=== PATIENT | male | born 1960 | race Caucasian/White ===

== ENCOUNTER 2017-03-20 14:39 | Emergency (ER) | payer OTHER ==
--- NOTE | 2017-03-20 16:22 | EDPHY ---
H & P Stated Complaint: Fell;hit head, +LOC;neck, head, L wrist pain HPI/ROS: CHIEF COMPLAINT: Head injury at work HISTORY OF PRESENT ILLNESS: This patient is a 56 year old male complaining of head and neck pain secondary to a fall at work this afternoon. He was moving a frame with other workers and it fell, so he attempted to break its fall. He fell back against another frame, striking his head, and states he neck "snapped forward", and he fell to the ground, striking his head on concrete. He did lose consciousness, and states he doesn't remember anything until EMS crews arrived. He states he could not feel his legs initially, but this has since resolved. He does not currently have paresthesias. He has not had any extremity weakness. He endorses global headache and neck soreness. His left wrist hurts as well. No nausea, vomiting, change in vision, confusion, or other associated symptoms. REVIEW OF SYSTEMS: A ten point review of systems was performed and is negative with the exception of the items mentioned in the HPI. - Personal History Current Tetanus Diphtheria and Acellular Pertussis (TDAP): Yes - Medical/Surgical History PMH: Denies Other PMH: healthy - Social History Smoking Status: Never smoked Additional Social History: Recently moved from [place]. No drug use, alcohol use, or prescription medications. at bedside. - Physical Exam Exam: General Appearance: Alert. Vital signs reviewed. Head: Normocephalic atraumatic. Eyes: Pupils equal and round, no conjunctival injection, no discharge. Anicteric. ENT, Mouth: Mucous membranes are moist, no oropharyngeal erythema or edema. No dental injury or trismus. Neck: Tender to palpation over the upper cervical spine/occiput in the midline , no step-off or deformity. There is also paraspinous muscle tenderness bilaterally. Respiratory: Lungs are clear to auscultation; no wheezes, rales, or rhonchi. Cardiovascular: Regular rate and rhythm; no murmur, rub, or gallop. Gastrointestinal: Abdomen is soft and nontender, no masses or organomegaly, bowel sounds normal. Skin: Warm and dry, no rashes on exposed skin, normal color. Back: Nontender to palpation over the thoracolumbar spine. No CVAT. Extremities: No lower extremity edema, no calf tenderness or swelling. Neurological: Alert and oriented. Moving all four extremities easily and equally. Cranial nerves II through XII are examined and are intact (visual acuity not tested). Strength is 5 over 5 bilaterally with testing of all major motor groups. Sensation is intact to light touch over all 4 extremities. Deep tendon reflexes are 2+ in the biceps and knees bilaterally. Gait is normal. Psychiatric: Normal affect. Constitutional: Initial Vital Signs Temperature (C) 36.8 C 03/20/17 14:40 Heart Rate 73 03/20/17 14:40 Respiratory Rate 16 03/20/17 14:40 Blood Pressure 122/75 H 03/20/17 14:40 O2 Sat (%) 91 L 03/20/17 14:40 O2 Delivery Mode Room Air Allergies/Adverse Reactions: No Known Allergies Allergy (Unverified 03/20/17 14:48) Home Medications: Medication Instructions Recorded NK [No Known Home Meds] 03/20/17 Medical Decision Making - Diagnostics Imaging Results: Noncontrast head CT reviewed by me in PACs. I discussed the findings with Dr. Rose. There are no acute traumatic findings. Cervical spine CT discussed with Dr. Rose. Multilevel degenerative disease. No acute traumatic findings. There is an incidental finding of a possible parathyroid adenoma. Left hand and wrist x-ray reviewed by me. Aside from osteoarthritis no abnormalities noted, specifically no fracture or dislocation. Imaging: Discussed imaging studies w/ marketing developer Radiologist, I viewed and interpreted images myself ED Course/Re-evaluation: This patient is a 56 year old male presenting following a fall and associated loss of consciousness of unknown duration. CT scan of the head performed for the following indications-loss of consciousness and headache following fall. Wrist x-ray and hand reviewed. No evidence of fracture. 17:[address] Rose, radiologist, who relayed results of head and neck CT.. No acute posttraumatic abnormality identified. CT also shows parathyroid nodule, suspicious for adenoma. Reassessed patient. Discussed results of scans, including parathyroid abnormality. I stressed the importance of following up with a primary care provider as soon as possible for further investigation. Blood work to further assess this finding was offered, but he would like to wait until he sees a primary care physician. He understands the importance of following up on this CT abnormality. Concussion precautions discussed, and follow up with Dr. Roa, concussion specialist. Plan to discharge home in good condition. The patient is comfortable with this plan. Differential Diagnosis: I considered a differential diagnosis that includes but is not limited to skull fracture, intracranial hemorrhage, concussion, cervical spinal cord injury or cervical vertebral injury, cervical strain, other fracture fracture, contusion, abrasion, and laceration - Data Points Medications Given: Discontinued Medications Acetaminophen (Tylenol) 650 mg PO EDNOW ONE Stop: 03/20/17 17:37 Last Admin: 03/20/17 18:01 Dose: 650 mg Departure - Departure Disposition: Home, Routine, Self-Care Clinical Impression: Concussion Qualifiers: Encounter type: initial encounter Loss of consciousness presence/duration: with LOC of 30 min or less Qualified Code(s): S06.0X1A - Concussion with loss of consciousness of 30 minutes or less, initial encounter Cervical sprain Qualifiers: Encounter type: initial encounter Qualified Code(s): S13.9XXA - Sprain of joints and ligaments of unspecified parts of neck, initial encounter Wrist contusion Qualifiers: Encounter type: initial encounter Laterality: left Qualified Code(s): S60.212A - Contusion of left wrist, initial encounter Condition: Good Instructions: Concussion (ED), Contusion in Adults (ED), Cervical Sprain (ED) Additional Instructions: 1. Follow up with your primary care provider for continued management of symptoms. 2. We have referred you to a concussion specialist. Please follow up with her as well if you are having continued symptoms such as headache. 3. Please practice brain and physical rest. Avoid screen time or any activities which make you feel uncomfortable. You may reintroduce activities as tolerated. Avoid contact sports or other activities which may result in repeated head injury until your symptoms have completely resolved. 4. As we discussed, there was an abnormality noted on the CAT scan of your neck. There is no enlargement involving your right parathyroid gland. You need to have this followed up with a primary care physician. You should not ignore this. Please schedule an appointment with a primary care doctor. 5. It is fine to take Tylenol 650 mg every 4 hours for pain. Referrals: [facility] [Other] - As per Instructions Tran Roa MD [Medical Doctor] - As per Instructions Report Scribed for: Kaylyn Venegas Report Scribed by: Violet Sullivan Date of Report: 03/20/17 Time of Report: 17:44 Physician Review and Approval Statement: 03/20/17 16:22 Portions of this note were transcribed by the lead medical technologist. I, Dr. Kaylyn Venegas, personally performed the history, physical exam, and medical decision- making; and confirmed the accuracy of the information in the transcribed note.
[2017-03-20 16:37] VITALS: TEMP 98.4; O2SAT 94
[2017-03-20] MEDS ORDERED: ACETAMINOPHEN 325 MG TAB PO ONE (17:36)
[2017-03-20 18:05] VITALS: BP 130/78; PULSE 88; RESP 18
== END 2017-03-20 18:03 | disposition home or self-care (01) ==
DX: S06.0X1A Concussion with loss of consciousness of 30 minutes or less, initial encounter (principal); S13.9XXA Sprain of joints and ligaments of unspecified parts of neck, initial encounter; S60.212A Contusion of left wrist, initial encounter; W01.198A Fall on same level from slipping, tripping and stumbling with subsequent striking against other object, initial encounter; Y92.69 Other specified industrial and construction area as the place of occurrence of the external cause; Y99.0 Civilian activity done for income or pay; Y93.89 Activity, other specified

== ENCOUNTER → 2017-10-07 | Outpatient (CLI) | payer OTHER | LOC: GIMAGING 14:53 | PROVIDERS: ATTEND Family Medicine | DX: R10.9 Unspecified abdominal pain (principal); R11.2 Nausea with vomiting, unspecified | CPT/HCPCS: 74022-PO ==